=== PATIENT | female | born 1975 | race Caucasian/White ===

== ENCOUNTER → 2017-04-12 16:47 | Outpatient (CLI) | payer MEDICAID ==
[2009-09-02 00:13] VITALS: BMI 20.8
== END | disposition home or self-care (01) ==
LOC: D.MAMMO 15:30
DX: Z12.31 Encounter for screening mammogram for malignant neoplasm of breast (principal)

== ENCOUNTER → 2017-05-31 14:25 | Outpatient (CLI) | payer MEDICAID ==
[2009-09-02 00:13] VITALS: BMI 20.8
== END | disposition home or self-care (01) ==
LOC: D.MAMMO 09:30
DX: Z12.31 Encounter for screening mammogram for malignant neoplasm of breast (principal)